=== PATIENT | male | born 1990 | race Caucasian/White ===

== ENCOUNTER 2016-08-02 11:52 | Emergency (ER) | payer OTHER ==
[2016-08-02] MEDS ORDERED: Morphine 10 MG/ML Syringe IV ONE (12:17)
[2016-08-02] MEDS ORDERED: Ondansetron 4 MG/2 ML SDV IVPUSH ONE (12:17)
[2016-08-02] MEDS ORDERED: Sodium Chloride 0.9% 1,000 ML IV ONE ×2 (12:18→14:10)
[2016-08-02] MEDS ORDERED: Pantoprazole 40 MG Vial IVPUSH ONE ×2 (12:26→12:45)
[2016-08-02] MEDS ORDERED: Alum Hydrox/Mag Hydrox/Simeth 15 ML, Metoclopramide 5 MG, Lidocaine 2% 5 ML PO ONE ×3 (12:27)
[2016-08-02] MEDS ORDERED: fentaNYL 100 MCG/2 ML SDV IVPUSH ONE (12:42)
[2016-08-02 13:11] LABS: CHLORIDE,CL 106 mmol/L (98-110); SODIUM,NA 140 mmol/L (136-146)
--- NOTE | 2016-08-02 13:51 | CR ---
EXAMINATION: Two-view chest (PA and Lateral views). HISTORY: Pain. FINDINGS: The trachea is midline. The cardiomediastinal silhouette is within normal limits. No pulmonary infil trates, effusions or pneumothorax. Osseous structures appear unremarkable. IMPRESSION: No acute cardiopulmonary process.
[2016-08-02] MEDS ORDERED: HYDROmorphone 2 MG/ML Syringe IVPUSH ONE ×2 (13:54→14:07)
--- NOTE | 2016-08-02 13:57 | CT ---
CT of the abdomen and pelvis without contrast. HISTORY: Pain TECHNIQUE: Axial CT images were obtained of the abdomen and pelvis without contrast. Coronal and sag ittal reconstructions obtained. Motion artifact obscures fine detail. FINDINGS: The lung bases are clear, no pleural effusion. There is mild fatty infiltration of the liver. The Spleen, adrenal glands, and pancreas appear unrem arkable for noncontrast examination. The gallbladder appears normal. There is no bulky retroperiton eal lymphadenopathy. No abdominal ascites. Probable punctate nonobstructing right renal stone within the lower pole. No evidence of obstructive uropathy bilaterally. The large and small bowel are normal in caliber without evidence of obstruction. The appendix appear s normal. There is no bulky pelvic lymphadenopathy. No free fluid. No free air. The urinary bladder appears normal. The visualized osseous structures appear normal. IMPRESSION: 1. No acute findings within the abdomen or pelvis. 2. Mild fatty infiltration of the liver.
--- NOTE | 2016-08-02 14:01 | EDM.PDOC ---
ED HPI GI/ABDOMINAL - General Chief Complaint: Abdominal Pain Stated Complaint: ABD PAIN Time Seen by Provider: 08/02/16 11:55 Source of Information: Reports: Patient History Limitations: Reports: No limitations - History of Present Illness INITIAL COMMENTS - FREE TEXT/NARRATIVE: History of present illness: [25-year-old male presents in acute distress. Indicates that he woke up with nausea vomiting diarrhea and then within a few hours debilitating abdominal pain commenced. Patient indicates the pain has increased in intensity since it started to the point that he can barely tolerate it. Patient is sitting in chair during interview and cannot sit still.] Review of systems: As per history of present illness and below otherwise all systems reviewed and negative. Past medical history: As per history of present illness and as reviewed below otherwise noncontributory. Surgical history: As per history of present illness and as reviewed below otherwise noncontributory. Social history: No reported history of drug or alcohol abuse. Family history: As per history of present illness and as reviewed below otherwise noncontributory. Physical exam: HEENT: Atraumatic, normocephalic, pupils reactive, negative for conjunctival pallor or scleral icterus, mucous membranes moist, throat clear, neck supple, nontender, trachea midline. Lungs: Clear to auscultation, breath sounds equal bilaterally, chest nontender. Heart: S1S2, regular, negative for clicks, rubs, or JVD. Abdomen: Soft, nondistended, exquisite diffuse tenderness. Negative for masses or hepatosplenomegaly. Negative for costovertebral tenderness. Pelvis: Stable nontender. Genitourinary: Deferred. Rectal: Deferred. Extremities: Atraumatic, negative for cords or calf pain. Neurovascular unremarkable. Neuro: Awake, alert, oriented. Cranial nerves II through XII unremarkable. Cerebellum unremarkable. Motor and sensory unremarkable throughout. Exam nonfocal. patient ambulated to the desk inquiring about discharge as well as asking about more pain medication. Dr. Perez consulted and was here to evaluate patient in the ED. Diagnostics: [CBC, CMP, CT] Therapeutics: [iv fluid, Zofran, Toradol, fentanyl, morphine, Dilaudid] Impression: [abdominal pain] Plan: [followup with PCP] Definitive disposition and diagnosis as appropriate pending reevaluation and review of above. - Related Data Allergies/ADRs: Allergies Allergy/AdvReac Type Severity Reaction Status Date / Time amoxicillin Allergy Hives Verified 08/02/16 12:06 Home Meds: Home Meds Omeprazole Magnesium [Prilosec Otc] 20 mg PO DAILY #30 tablet. 08/02/16 [Rx] Past Medical History - Past Health History Medical/Surgical History: Denies Medical/Surgical History - Infectious Disease History Infectious Disease History: Reports: Chicken pox Social & Family History - Family History Family Medical History: Noncontributory - Tobacco Use Smoking Status *Q: Current Every Day Smoker Years of Tobacco use: 4 Packs/Tins Daily: 1 - Recreational Drug Use Recreational Drug Use: No ED ROS GENERAL - Review of Systems Review Of Systems: See Below (History of present illness) ED EXAM, GI/ABD - Physical Exam Exam: See Below (See history of present illness) Course - Vital Signs Last Recorded V/S: Last Vital Signs Temp 37.4 C 08/02/16 15:03 Pulse 87 08/02/16 16:10 Resp 18 08/02/16 16:10 BP 140/91 H 08/02/16 16:10 Pulse Ox 96 08/02/16 16:10 - Orders/Labs/Meds Orders: Active Orders 24 hr Category Date Time Status Notify Provider Consults [RC] ASDIRECTED Care 08/02/16 16:59 Active Consult to Physician [CONS] Stat Cons 08/02/16 16:57 Active [facility] PYLORI AB IGG [CHEM] Stat Lab 08/02/16 17:12 Ordered Labs: Laboratory Tests 08/02/16 08/02/16 08/02/16 Range/Units 12:15 12:15 12:15 WBC 25.01 H (4.0-11.0) K/uL RBC 5.93 H (4.50-5.90) M/uL Hgb 18.1 H (13.0-17.0) g/dL Hct 49.5 (38.0-50.0) % MCV 83.5 (80.0-98.0) fL MCH 30.5 (27.0-32.0) pg MCHC 36.6 (31.0-37.0) g/dL RDW Std Deviation 38.2 (28.0-62.0) fl RDW Coeff of Madhu 13 (11.0-15.0) % Plt Count 280 (150-400) K/uL MPV 10.20 (7.40-12.00) fL Add Manual Diff YES Neutrophils % (Manual) 77 (48.0-80.0) % Band Neutrophils % 13 % Lymphocytes % (Manual) 10 L (16.0-40.0) % Nucleated RBC % 0.0 /100WBC Absolute Seg Neuts 19.3 Band Neutrophils # 3.3 Lymphocytes # (Manual) 2.5 Nucleated RBCs # 0 K/uL Sodium 140 (136-146) mmol/L Potassium 4.4 (3.5-5.1) mmol/L Chloride 106 (98-110) mmol/L Carbon Dioxide 18 L (21-31) mmol/L BUN 18 (6.0-23.0) mg/dL Creatinine 0.9 (0.6-1.5) mg/dL Est Cr Clr Drug Dosing 131.81 mL/min Estimated GFR (MDRD) > 60.0 ml/min Glucose 101 (60-110) mg/dL Calcium 10.1 (8.8-10.8) mg/dL Total Bilirubin 0.6 (0.1-1.5) mg/dL AST 25 (5-40) IU/L ALT 55 H (8-54) IU/L Alkaline Phosphatase 93 (40-150) Troponin I < 0.10 (0.0-0.29) NG/ML Total Protein 8.1 H (6.0-8.0) g/dL Albumin 4.9 (3.5-5.0) g/dL Globulin 3.2 (2.0-3.5) g/dL Albumin/Globulin Ratio 1.5 (1.3-2.8) Amylase (10-90) U/L Lipase (7-80) U/L Urine Color Urine Appearance Urine pH (5.0-8.0) Ur Specific [place] (1.001-1.035) Urine Protein (NEGATIVE) mg/dL Urine Glucose (UA) (NEGATIVE) mg/dL Urine Ketones (NEGATIVE) mg/dL Urine Occult Blood (NEGATIVE) Urine Nitrite (NEGATIVE) Urine Bilirubin (NEGATIVE) Urine Urobilinogen (<2.0) EU/dL Ur Leukocyte Esterase (NEGATIVE) Urine RBC (0-2/HPF) Urine WBC (0-5/HPF) Ur Epithelial Cells (NONE-FEW) Urine Bacteria (NEGATIVE) Urine Mucus (NONE-MOD) Urine Opiates Screen (NEGATIVE) Ur Oxycodone Screen (NEGATIVE) Urine Methadone Screen (NEGATIVE) Ur Barbiturates Screen (NEGATIVE) Ur Phencyclidine Scrn (NEGATIVE) Ur Amphetamine Screen (NEGATIVE) U Methamphetamines Scrn (NEGATIVE) U Benzodiazepines Scrn (NEGATIVE) U Cocaine Metab Screen (NEGATIVE) U Marijuana (THC) Screen (NEGATIVE) 08/02/16 08/02/16 08/02/16 Range/Units 12:15 12:15 12:23 WBC (4.0-11.0) K/uL RBC (4.50-5.90) M/uL Hgb (13.0-17.0) g/dL Hct (38.0-50.0) % MCV (80.0-98.0) fL MCH (27.0-32.0) pg MCHC (31.0-37.0) g/dL RDW Std Deviation (28.0-62.0) fl RDW Coeff of Madhu (11.0-15.0) % Plt Count (150-400) K/uL MPV (7.40-12.00) fL Add Manual Diff Neutrophils % (Manual) (48.0-80.0) % Band Neutrophils % % Lymphocytes % (Manual) (16.0-40.0) % Nucleated RBC % /100WBC Absolute Seg Neuts Band Neutrophils # Lymphocytes # (Manual) Nucleated RBCs # K/uL Sodium (136-146) mmol/L Potassium (3.5-5.1) mmol/L Chloride (98-110) mmol/L Carbon Dioxide (21-31) mmol/L BUN (6.0-23.0) mg/dL Creatinine (0.6-1.5) mg/dL Est Cr Clr Drug Dosing mL/min Estimated GFR (MDRD) ml/min Glucose (60-110) mg/dL Calcium (8.8-10.8) mg/dL Total Bilirubin (0.1-1.5) mg/dL AST (5-40) IU/L ALT (8-54) IU/L Alkaline Phosphatase (40-150) Troponin I (0.0-0.29) NG/ML Total Protein (6.0-8.0) g/dL Albumin (3.5-5.0) g/dL Globulin (2.0-3.5) g/dL Albumin/Globulin Ratio (1.3-2.8) Amylase 54 (10-90) U/L Lipase 39 (7-80) U/L Urine Color YELLOW Urine Appearance CLEAR Urine pH 7.0 (5.0-8.0) Ur Specific [place] 1.015 (1.001-1.035) Urine Protein TRACE (NEGATIVE) mg/dL Urine Glucose (UA) NEGATIVE (NEGATIVE) mg/dL Urine Ketones NEGATIVE (NEGATIVE) mg/dL Urine Occult Blood NEGATIVE (NEGATIVE) Urine Nitrite NEGATIVE (NEGATIVE) Urine Bilirubin NEGATIVE (NEGATIVE) Urine Urobilinogen 0.2 (<2.0) EU/dL Ur Leukocyte Esterase NEGATIVE (NEGATIVE) Urine RBC 0-2 (0-2/HPF) Urine WBC 0-1 (0-5/HPF) Ur Epithelial Cells RARE (NONE-FEW) Urine Bacteria FEW (NEGATIVE) Urine Mucus LIGHT (NONE-MOD) Urine Opiates Screen (NEGATIVE) Ur Oxycodone Screen (NEGATIVE) Urine Methadone Screen (NEGATIVE) Ur Barbiturates Screen (NEGATIVE) Ur Phencyclidine Scrn (NEGATIVE) Ur Amphetamine Screen (NEGATIVE) U Methamphetamines Scrn (NEGATIVE) U Benzodiazepines Scrn (NEGATIVE) U Cocaine Metab Screen (NEGATIVE) U Marijuana (THC) Screen (NEGATIVE) 08/02/16 Range/Units 12:23 WBC (4.0-11.0) K/uL RBC (4.50-5.90) M/uL Hgb (13.0-17.0) g/dL Hct (38.0-50.0) % MCV (80.0-98.0) fL MCH (27.0-32.0) pg MCHC (31.0-37.0) g/dL RDW Std Deviation (28.0-62.0) fl RDW Coeff of Madhu (11.0-15.0) % Plt Count (150-400) K/uL MPV (7.40-12.00) fL Add Manual Diff Neutrophils % (Manual) (48.0-80.0) % Band Neutrophils % % Lymphocytes % (Manual) (16.0-40.0) % Nucleated RBC % /100WBC Absolute Seg Neuts Band Neutrophils # Lymphocytes # (Manual) Nucleated RBCs # K/uL Sodium (136-146) mmol/L Potassium (3.5-5.1) mmol/L Chloride (98-110) mmol/L Carbon Dioxide (21-31) mmol/L BUN (6.0-23.0) mg/dL Creatinine (0.6-1.5) mg/dL Est Cr Clr Drug Dosing mL/min Estimated GFR (MDRD) ml/min Glucose (60-110) mg/dL Calcium (8.8-10.8) mg/dL Total Bilirubin (0.1-1.5) mg/dL AST (5-40) IU/L ALT (8-54) IU/L Alkaline Phosphatase (40-150) Troponin I (0.0-0.29) NG/ML Total Protein (6.0-8.0) g/dL Albumin (3.5-5.0) g/dL Globulin (2.0-3.5) g/dL Albumin/Globulin Ratio (1.3-2.8) Amylase (10-90) U/L Lipase (7-80) U/L Urine Color Urine Appearance Urine pH (5.0-8.0) Ur Specific [place] (1.001-1.035) Urine Protein (NEGATIVE) mg/dL Urine Glucose (UA) (NEGATIVE) mg/dL Urine Ketones (NEGATIVE) mg/dL Urine Occult Blood (NEGATIVE) Urine Nitrite (NEGATIVE) Urine Bilirubin (NEGATIVE) Urine Urobilinogen (<2.0) EU/dL Ur Leukocyte Esterase (NEGATIVE) Urine RBC (0-2/HPF) Urine WBC (0-5/HPF) Ur Epithelial Cells (NONE-FEW) Urine Bacteria (NEGATIVE) Urine Mucus (NONE-MOD) Urine Opiates Screen NEGATIVE (NEGATIVE) Ur Oxycodone Screen NEGATIVE (NEGATIVE) Urine Methadone Screen NEGATIVE (NEGATIVE) Ur Barbiturates Screen NEGATIVE (NEGATIVE) Ur Phencyclidine Scrn NEGATIVE (NEGATIVE) Ur Amphetamine Screen NEGATIVE (NEGATIVE) U Methamphetamines Scrn NEGATIVE (NEGATIVE) U Benzodiazepines Scrn NEGATIVE (NEGATIVE) U Cocaine Metab Screen NEGATIVE (NEGATIVE) U Marijuana (THC) Screen POSITIVE (NEGATIVE) Meds: Medications Discontinued Medications Generic Name Dose Route Start Last Admin Trade Name Freq PRN Reason Stop Dose Admin Al Hydroxide/Mg Hydroxide 15 0 ml 08/02/16 12:27 08/02/16 12:38 ml/ Metoclopramide HCl 5 mg/ PO 08/02/16 12:28 25 each Lidocaine HCl 5 ml ONETIME ONE Administration Fentanyl 50 mcg 08/02/16 12:42 08/02/16 12:51 Sublimaze IVPUSH 08/02/16 12:43 50 mcg ONETIME ONE Administration Hydromorphone HCl 2 mg 08/02/16 13:54 08/02/16 14:21 Dilaudid IVPUSH 08/02/16 13:55 Not Given ONETIME ONE Hydromorphone HCl 0.5 mg 08/02/16 14:07 08/02/16 14:14 Dilaudid IVPUSH 08/02/16 14:08 0.5 mg ONETIME ONE Administration Sodium Chloride 1,000 mls @ 999 mls/hr 08/02/16 12:18 08/02/16 12:23 Normal Saline IV 08/02/16 13:18 999 mls/hr STAT ONE Administration Sodium Chloride 1,000 mls @ 999 mls/hr 08/02/16 14:10 08/02/16 14:19 Normal Saline IV 08/02/16 15:10 999 mls/hr .Bolus ONE Administration Ketorolac Tromethamine 30 mg 08/02/16 15:57 08/02/16 16:11 Toradol IM 08/02/16 15:58 Not Given ONETIME ONE Ketorolac Tromethamine 30 mg 08/02/16 16:11 08/02/16 16:12 Toradol IVPUSH 08/02/16 16:12 30 mg ONETIME ONE Administration Lorazepam 1 mg 08/02/16 14:07 08/02/16 14:18 Ativan IVPUSH 08/02/16 14:08 1 mg ONETIME ONE Administration Morphine Sulfate 4 mg 08/02/16 12:17 08/02/16 12:25 Morphine IV 08/02/16 12:18 4 mg ONETIME ONE Administration Ondansetron HCl 8 mg 08/02/16 12:17 08/02/16 12:25 Zofran IVPUSH 08/02/16 12:18 8 mg ONETIME ONE Administration Pantoprazole Sodium 80 mg 08/02/16 12:26 08/02/16 12:39 Protonix Iv IVPUSH 08/02/16 12:27 80 mg .BOLUS ONE Administration Pantoprazole Sodium 80 mg 08/02/16 12:45 08/02/16 12:51 Protonix Iv IVPUSH 08/02/16 12:46 Not Given .BOLUS ONE Departure - Departure Time of Disposition: 17:42 Disposition: Home, Self-Care 01 Condition: good Clinical Impression: Abdominal pain Instructions: Abdominal Pain, Adult, [id number] Forms: ED Department Discharge Additional Instructions: The following information is given to patients seen in the emergency department who are being discharged to home. This information is to outline your options for follow-up care. We provide all patients seen in our emergency department with a follow-up referral. The need for follow-up, as well as the timing and circumstances, are variable depending upon the specifics of your emergency department visit. If you don't have a primary care physician on staff, we will provide you with a referral. We always advise you to contact your personal physician following an emergency department visit to inform them of the circumstance of the visit and for follow-up with them and/or the need for any referrals to a consulting specialist. The emergency department will also refer you to a specialist when appropriate. This referral assures that you have the opportunity for follow-up care with a specialist. All of these measure are taken in an effort to provide you with optimal care, which includes your follow-up. Under all circumstances we always encourage you to contact your private physician who remains a resource for coordinating your care. When calling for follow-up care, please make the office aware that this follow-up is from your recent emergency room visit. If for any reason you are refused follow-up, please contact the [facility] Emergency Department at and asked to speak to the emergency department charge nurse. it is important to followup with her primary care provider in relation to your elevated white blood cell count There will require other diagnostic exams with followup to be able to obtain any definitive diagnosis that is now within the capacity of emergency room Return to ED as needed as discussed [facility] Primary [facility] [address] [place] [id number] - My Orders Last 24 Hours: My Active Orders 08/02/16 17:12 [facility] PYLORI AB IGG [CHEM] Stat - Assessment/Plan Last 24 Hours: My Active Orders 08/02/16 17:12 [facility]BACT[facility] PYLORI AB IGG [CHEM] Stat
[2016-08-02] MEDS ORDERED: LORazepam 2 MG/ML MDV IVPUSH ONE (14:07)
--- NOTE | 2016-08-02 15:26 | US ---
EXAMINATION: Right upper quadrant ultrasound HISTORY: Pain COMPARISON: CT from the same day TECHNIQUE: Grayscale and color Doppler images obtained of the right upper quadrant. FINDINGS: The visualized pancreas appears normal. The liver is mildly increased in generalized echot exture without a focal hepatic mass. The gallbladder wall thickness is normal. No pericholecystic fl uid or shadowing gallstones. Common bile duct measures 2 mm. The sonographic Simpson sign is negative . The right kidney measures 10.9 cm [id number] without evidence of hydronephrosis. IMPRESSION: 1. Mild fatty infiltration of liver, otherwise unremarkable right upper quadrant.
[2016-08-02] MEDS ORDERED: Ketorolac 30 MG/ML SDV IM ONE (15:57)
[2016-08-02] MEDS ORDERED: Ketorolac 30 MG/ML SDV IVPUSH ONE (16:11)
--- NOTE | 2016-08-02 17:23 | PCM.CONS ---
H&P History of Present Illness - General Date of Service: 08/02/16 Admit Problem/Dx: Right upper quadrant pain with nausea and vomiting. Source of Information: Patient History Limitations: Reports: No limitations - History of Present Illness Initial Comments - Free Text/Narative: Patient is a 25-year-old gentleman, who presented to the emergency room earlier today complaining of severe right upper quadrant abdominal pain. He awakened with abdominal discomfort about 6 AM and the pain got severe at 9 AM. Upon presentation to the emergency room he was found have a white count of 25,000 with 82 segs and 13 bands. Radiologic workup has included a CT scan without contrast and ultrasound of the gallbladder. No acute intra-abdominal pathology is noted. Specifically, there is no evidence of cholelithiasis or cholecystitis. There is a small stone in the lower pole of the right kidney, but there is no ureteral obstruction. He has never had anything like this before. He states he did make was on a last night, and ate that without any difficulty. Onset of Symptoms: Reports: today Symptom Onset Date: 08/02/16 Symptom Onset Time: 06:00 Duration of Symptoms: Reports: Constant Location: Reports: abdomen Quality: Reports: Pressure, Stabbing Severity: moderate Improves with: Reports: Rest, Other (narcotics) Worsens with: Reports: Movement Context: Reports: sick contact Associated Symptoms: Reports: loss of appetite, nausea/vomiting, other (diarrhea ). Denies: diaphoresis, fever/chills Upper Abdominal Pain Score (Numeric/FACES): 10 - Related Data Allergies/Adverse Reactions: Allergies Allergy/AdvReac Type Severity Reaction Status Date / Time amoxicillin Allergy Hives Verified 08/02/16 12:06 Home Medications: Home Meds . [No Known Home Meds] 08/02/16 [History] Past Medical History - Past Health History Medical/Surgical History: Denies Medical/Surgical History - Infectious Disease History Infectious Disease History: Reports: Chicken pox Social & Family History - Family History Family Medical History: Noncontributory - Tobacco Use Smoking Status *Q: Current Every Day Smoker Years of Tobacco use: 4 Packs/Tins Daily: 1 - Recreational Drug Use Recreational Drug Use: No H&P Review of Systems - Review of Systems: Review Of Systems: See Below General: Reports: decreased appetite. Denies: fever, chills, diaphoresis HEENT: Reports: no symptoms Pulmonary: Reports: Shortness of Breath, Wheezing Cardiovascular: Reports: chest pain, palpitations Gastrointestinal: Reports: Abdominal pain, Anorexia, Diarrhea, Decreased appetite, Nausea, Vomiting. Denies: Black stool, Bloody stool, Constipation, Difficulty swallowing, Distension Genitourinary: Denies: dysuria, frequency, burning, pain, urgency Musculoskeletal: Reports: no symptoms Skin: Reports: no symptoms Psychiatric: Denies: confusion, depression, mood lability, anxiety Neurological: Reports: No Symptoms Hematologic/Lymphatic: Denies: anemia, easy bleeding, easy bruising Immunologic: Reports: no symptoms Exam - Exam Exam: See Below - Vital Signs Vital Signs: Last Vital Signs Temp 99.3 F 08/02/16 15:03 Pulse 87 08/02/16 16:10 Resp 18 08/02/16 16:10 BP 140/91 H 08/02/16 16:10 Pulse Ox 96 08/02/16 16:10 Weight: 239 lb 10.279 oz - Exam Quality Assessment: No: supplemental oxygen, central line/PICC, urinary catheter General: alert, oriented, cooperative, mild distress HEENT: Conjunctiva clear, EACs clear, PERRLA. No: Scleral icterus Neck: supple, trachea midline Lungs: Clear to auscultation, Normal respiratory effort Cardiovascular: regular rate, regular rhythm, normal S1, normal S2. No: tachycardia, systolic murmur, diastolic murmur Abdomen: normal bowel sounds, soft, tenderness. No: peritoneal signs, distention, guarding, rigidity, rebound, McBurney's sign, Simpson's sign (Male) Exam: No hernia Rectal (Males) Exam: Deferred Extremities: normal inspection, normal pulses Skin: warm, dry, intact Neuro Extensive - Mental Status: alert, oriented x3, normal mood/affect Psychiatric: alert, anxious - Patient Data Lab Results last 24 hrs: Laboratory Results - last 24 hr 08/02/16 08/02/16 08/02/16 Range/Units 12:15 12:15 12:15 WBC 25.01 H (4.0-11.0) K/uL RBC 5.93 H (4.50-5.90) M/uL Hgb 18.1 H (13.0-17.0) g/dL Hct 49.5 (38.0-50.0) % MCV 83.5 (80.0-98.0) fL MCH 30.5 (27.0-32.0) pg MCHC 36.6 (31.0-37.0) g/dL RDW Std Deviation 38.2 (28.0-62.0) fl RDW Coeff of Madhu 13 (11.0-15.0) % Plt Count 280 (150-400) K/uL MPV 10.20 (7.40-12.00) fL Add Manual Diff YES Neutrophils % (Manual) 77 (48.0-80.0) % Band Neutrophils % 13 % Lymphocytes % (Manual) 10 L (16.0-40.0) % Nucleated RBC % 0.0 /100WBC Absolute Seg Neuts 19.3 Band Neutrophils # 3.3 Lymphocytes # (Manual) 2.5 Nucleated RBCs # 0 K/uL Sodium 140 (136-146) mmol/L Potassium 4.4 (3.5-5.1) mmol/L Chloride 106 (98-110) mmol/L Carbon Dioxide 18 L (21-31) mmol/L BUN 18 (6.0-23.0) mg/dL Creatinine 0.9 (0.6-1.5) mg/dL Est Cr Clr Drug Dosing 131.81 mL/min Estimated GFR (MDRD) > 60.0 ml/min Glucose 101 (60-110) mg/dL Calcium 10.1 (8.8-10.8) mg/dL Total Bilirubin 0.6 (0.1-1.5) mg/dL AST 25 (5-40) IU/L ALT 55 H (8-54) IU/L Alkaline Phosphatase 93 (40-150) Troponin I < 0.10 (0.0-0.29) NG/ML Total Protein 8.1 H (6.0-8.0) g/dL Albumin 4.9 (3.5-5.0) g/dL Globulin 3.2 (2.0-3.5) g/dL Albumin/Globulin Ratio 1.5 (1.3-2.8) Amylase (10-90) U/L Lipase (7-80) U/L Urine Color Urine Appearance Urine pH (5.0-8.0) Ur Specific [place] (1.001-1.035) Urine Protein (NEGATIVE) mg/dL Urine Glucose (UA) (NEGATIVE) mg/dL Urine Ketones (NEGATIVE) mg/dL Urine Occult Blood (NEGATIVE) Urine Nitrite (NEGATIVE) Urine Bilirubin (NEGATIVE) Urine Urobilinogen (<2.0) EU/dL Ur Leukocyte Esterase (NEGATIVE) Urine RBC (0-2/HPF) Urine WBC (0-5/HPF) Ur Epithelial Cells (NONE-FEW) Urine Bacteria (NEGATIVE) Urine Mucus (NONE-MOD) Urine Opiates Screen (NEGATIVE) Ur Oxycodone Screen (NEGATIVE) Urine Methadone Screen (NEGATIVE) Ur Barbiturates Screen (NEGATIVE) Ur Phencyclidine Scrn (NEGATIVE) Ur Amphetamine Screen (NEGATIVE) U Methamphetamines Scrn (NEGATIVE) U Benzodiazepines Scrn (NEGATIVE) U Cocaine Metab Screen (NEGATIVE) U Marijuana (THC) Screen (NEGATIVE) 08/02/16 08/02/16 08/02/16 Range/Units 12:15 12:15 12:23 WBC (4.0-11.0) K/uL RBC (4.50-5.90) M/uL Hgb (13.0-17.0) g/dL Hct (38.0-50.0) % MCV (80.0-98.0) fL MCH (27.0-32.0) pg MCHC (31.0-37.0) g/dL RDW Std Deviation (28.0-62.0) fl RDW Coeff of Madhu (11.0-15.0) % Plt Count (150-400) K/uL MPV (7.40-12.00) fL Add Manual Diff Neutrophils % (Manual) (48.0-80.0) % Band Neutrophils % % Lymphocytes % (Manual) (16.0-40.0) % Nucleated RBC % /100WBC Absolute Seg Neuts Band Neutrophils # Lymphocytes # (Manual) Nucleated RBCs # K/uL Sodium (136-146) mmol/L Potassium (3.5-5.1) mmol/L Chloride (98-110) mmol/L Carbon Dioxide (21-31) mmol/L BUN (6.0-23.0) mg/dL Creatinine (0.6-1.5) mg/dL Est Cr Clr Drug Dosing mL/min Estimated GFR (MDRD) ml/min Glucose (60-110) mg/dL Calcium (8.8-10.8) mg/dL Total Bilirubin (0.1-1.5) mg/dL AST (5-40) IU/L ALT (8-54) IU/L Alkaline Phosphatase (40-150) Troponin I (0.0-0.29) NG/ML Total Protein (6.0-8.0) g/dL Albumin (3.5-5.0) g/dL Globulin (2.0-3.5) g/dL Albumin/Globulin Ratio (1.3-2.8) Amylase 54 (10-90) U/L Lipase 39 (7-80) U/L Urine Color YELLOW Urine Appearance CLEAR Urine pH 7.0 (5.0-8.0) Ur Specific [place] 1.015 (1.001-1.035) Urine Protein TRACE (NEGATIVE) mg/dL Urine Glucose (UA) NEGATIVE (NEGATIVE) mg/dL Urine Ketones NEGATIVE (NEGATIVE) mg/dL Urine Occult Blood NEGATIVE (NEGATIVE) Urine Nitrite NEGATIVE (NEGATIVE) Urine Bilirubin NEGATIVE (NEGATIVE) Urine Urobilinogen 0.2 (<2.0) EU/dL Ur Leukocyte Esterase NEGATIVE (NEGATIVE) Urine RBC 0-2 (0-2/HPF) Urine WBC 0-1 (0-5/HPF) Ur Epithelial Cells RARE (NONE-FEW) Urine Bacteria FEW (NEGATIVE) Urine Mucus LIGHT (NONE-MOD) Urine Opiates Screen (NEGATIVE) Ur Oxycodone Screen (NEGATIVE) Urine Methadone Screen (NEGATIVE) Ur Barbiturates Screen (NEGATIVE) Ur Phencyclidine Scrn (NEGATIVE) Ur Amphetamine Screen (NEGATIVE) U Methamphetamines Scrn (NEGATIVE) U Benzodiazepines Scrn (NEGATIVE) U Cocaine Metab Screen (NEGATIVE) U Marijuana (THC) Screen (NEGATIVE) 08/02/16 Range/Units 12:23 WBC (4.0-11.0) K/uL RBC (4.50-5.90) M/uL Hgb (13.0-17.0) g/dL Hct (38.0-50.0) % MCV (80.0-98.0) fL MCH (27.0-32.0) pg MCHC (31.0-37.0) g/dL RDW Std Deviation (28.0-62.0) fl RDW Coeff of Madhu (11.0-15.0) % Plt Count (150-400) K/uL MPV (7.40-12.00) fL Add Manual Diff Neutrophils % (Manual) (48.0-80.0) % Band Neutrophils % % Lymphocytes % (Manual) (16.0-40.0) % Nucleated RBC % /100WBC Absolute Seg Neuts Band Neutrophils # Lymphocytes # (Manual) Nucleated RBCs # K/uL Sodium (136-146) mmol/L Potassium (3.5-5.1) mmol/L Chloride (98-110) mmol/L Carbon Dioxide (21-31) mmol/L BUN (6.0-23.0) mg/dL Creatinine (0.6-1.5) mg/dL Est Cr Clr Drug Dosing mL/min Estimated GFR (MDRD) ml/min Glucose (60-110) mg/dL Calcium (8.8-10.8) mg/dL Total Bilirubin (0.1-1.5) mg/dL AST (5-40) IU/L ALT (8-54) IU/L Alkaline Phosphatase (40-150) Troponin I (0.0-0.29) NG/ML Total Protein (6.0-8.0) g/dL Albumin (3.5-5.0) g/dL Globulin (2.0-3.5) g/dL Albumin/Globulin Ratio (1.3-2.8) Amylase (10-90) U/L Lipase (7-80) U/L Urine Color Urine Appearance Urine pH (5.0-8.0) Ur Specific [place] (1.001-1.035) Urine Protein (NEGATIVE) mg/dL Urine Glucose (UA) (NEGATIVE) mg/dL Urine Ketones (NEGATIVE) mg/dL Urine Occult Blood (NEGATIVE) Urine Nitrite (NEGATIVE) Urine Bilirubin (NEGATIVE) Urine Urobilinogen (<2.0) EU/dL Ur Leukocyte Esterase (NEGATIVE) Urine RBC (0-2/HPF) Urine WBC (0-5/HPF) Ur Epithelial Cells (NONE-FEW) Urine Bacteria (NEGATIVE) Urine Mucus (NONE-MOD) Urine Opiates Screen NEGATIVE (NEGATIVE) Ur Oxycodone Screen NEGATIVE (NEGATIVE) Urine Methadone Screen NEGATIVE (NEGATIVE) Ur Barbiturates Screen NEGATIVE (NEGATIVE) Ur Phencyclidine Scrn NEGATIVE (NEGATIVE) Ur Amphetamine Screen NEGATIVE (NEGATIVE) U Methamphetamines Scrn NEGATIVE (NEGATIVE) U Benzodiazepines Scrn NEGATIVE (NEGATIVE) U Cocaine Metab Screen NEGATIVE (NEGATIVE) U Marijuana (THC) Screen POSITIVE (NEGATIVE) Result Diagrams: 08/02/16 12:15 08/02/16 12:15 Consult PN Assessment/Plan (1) Right upper quadrant abdominal pain SNOMED Code(s): 814611207 Code(s): R10.11 - RIGHT UPPER QUADRANT PAIN Current Visit: Yes (2) Nausea & vomiting SNOMED Code(s): 38413534 Code(s): R11.2 - NAUSEA WITH VOMITING, UNSPECIFIED Current Visit: Yes Problem List Initiated/Reviewed/Updated: Yes Plan: There is no evidence of an acute intra-abdominal process or an infectious process. I would recommend PPI/Carafate therapy. As he responded to Ativan it would be reasonable to give him a few Ativan tabs for his anxiety. He should follow-up with his PCP withing 7-10 days. I do not see an indication for antibiotic therapy.
[2016-08-02 17:49] VITALS: BP 133/80
== END 2016-08-02 18:05 | disposition home or self-care (01) ==
LOC: MW.ED 11:52
DX: R10.11 Right upper quadrant pain (principal); R11.2 Nausea with vomiting, unspecified; R19.7 Diarrhea, unspecified; D72.829 Elevated white blood cell count, unspecified; N20.0 Calculus of kidney; F17.210 Nicotine dependence, cigarettes, uncomplicated; Z79.899 Other long term (current) drug therapy; Z88.1 Allergy status to other antibiotic agents
CPT/HCPCS: 36415; 71020; 74176; 76705; 80053; 80305; 81001; 82150; 83690; 84484; 85025; 86677; 96361; 96374; 96375; 99285; A9270; C9113; J1170; J1885; J2060; J2270; J2405; J3010; J7040; 99284